=== PATIENT | female | born 1950 | race Caucasian/White ===

== ENCOUNTER → 2022-11-26 09:09 | Outpatient (CLI) | payer MEDICARE, OTHER, SELFPAY ==
--- NOTE | ~2022-11-26 | MR_ITS ---
MRI of the right shoulder Technique: Axial proton-density fat-sat images, coronal proton density fat-sat and T2 fat-sat images, and sagittal T1-weighted and T2 fat-sat images were acquired. Clinical History: Pain Findings: There is moderate AC joint degenerative change. Small subacromial spur present. Coracoclavi cular, coracoacromial, and coracohumeral ligaments are intact. Supraspinatus and infraspinatus tendons are intact, without partial or full-thickness tear. Subscapul veronica tendon is intact. Tendon of the long head of the biceps is intact. There is mild attenuation of the posterior labrum, but no discrete, detached labral tear identified. No significant degenerative change or effusion of the glenohumeral joint. Inferior glenohumeral ligam ent is intact. There is minimal fluid in the subacromial/subdeltoid bursa. No muscle atrophy or edema . Impression: Probable degenerative attenuation of the posterior labrum without discrete, detached labral tear. Minimal subacromial/subdeltoid bursitis. Moderate AC joint degenerative change. Reviewed, dictated and finalized at [facility]. L COORDINATOR Impression: Probable degenerative attenuation of the posterior labrum without discrete, det ached labral tear. Minimal subacromial/subdeltoid bursitis. Moderate AC joint degenerative change.
== END ==
PROVIDERS: PCP Internal Medicine; Visit Provider Orthopaedic Surgery
DX: M19.011 Primary osteoarthritis, right shoulder (principal)
CPT/HCPCS: 73221